=== PATIENT | female | born 1975 | race Caucasian/White ===

== ENCOUNTER 2020-03-24 14:31 | Emergency (ER) | payer SELFPAY ==
[~2020-03-24] VITALS: Ht 157.5 cm; Wt 79.8 kg
[2020-03-24 14:40] VITALS: BP 138/85
--- NOTE | 2020-03-24 14:40 | NUR ---
PT REFERED BY HER OBGYN C/O VAGINAL BLEEDING SINCE 03/04/2020 WITH 5 SAT PADS CHANGED DAILY. PT ALSO C/O LOWER CRAMPING ABDOMINAL PAIN 7/10, BAND-LIKE TENSION HEADACHE 8/10, AND DIZZINESS AT THIS TIME. DENIES NAUSEA, VOMITING, DIARRHEA, FEVER, COUGH, SORE THROAT. REPORTS HAVING IRREGULAR AND HEAVY MENSES FOR THE PAST 5 YEARS. PT DENIES ANY FEVER, CP, SOB, OR COUGH AT THIS TIME; PATIENT STATES PAIN OF 8/10 AT THIS TIME; VSS; PATIENT POSITIONED FOR COMFORT; HOB ELEVATED; BEDRAILS UP X1; BED DOWN. ER MD MADE AWARE OF PT STATUS.
[2020-03-24] MEDS ORDERED: IBUPROFEN 400 MG TAB PO ONE (15:10)
--- NOTE | 2020-03-24 15:22 | NUR ---
US IS AT BEDSIDE.
[2020-03-24 16:17] LABS: BASOPHILS % (AUTO) 0.8 % (0.0-2.0); EOSINOPHILS # (AUTO) 0.1 K/uL (0-0.4); EOSINOPHILS % (AUTO) 1.2 % (0.0-4.0); HEMATOCRIT 37.2 % (36-48); HEMOGLOBIN 12.1 g/dL (12.0-16.0); LYMPHOCYTES # (AUTO) 1.7 K/uL (2.5-16.5); LYMPHOCYTES % (AUTO) 26.4 % (20.5-51.1); MEAN CORPUSCULAR HEMOGLOBIN 30 pg (27-31); MEAN CORPUSCULAR HGB CONC 33 g/dL (33-37); MEAN CORPUSCULAR VOLUME 93.4 fL (80-94); MONOCYTES # (AUTO) 0.4 K/uL (0.8-1.0); MONOCYTES % (AUTO) 6.7 % (1.7-9.3); NEUTROPHILS # (AUTO) 4.3 K/uL (1.8-7.7); NEUTROPHILS % (AUTO) 64.9 % (42.2-75.2); PLATELET COUNT (AUTO) 235 K/uL (140-450); RED BLOOD CELL COUNT(AUTO) 3.99 MIL/uL (4.20-5.40); RED CELL DISTRIBUTION WIDTH 16.1 % (11.6-13.7); WHITE BLOOD COUNT (AUTO) 6.6 K/uL (4.8-10.8)
[2020-03-24 16:31] LABS: PROTHROMBIN TIME 9.8 secs (10.8-13.4)
[2020-03-24 16:42] LABS: ALBUMIN 3.6 g/dL (3.4-5.0); CREATININE 0.7 mg/dL (0.6-1.3); THYROID STIMULATING HORMONE 1.13 uIU/mL (0.34-3.74); TOTAL BILIRUBIN 0.1 mg/dL (0.0-1.0)
[2020-03-24 17:03] VITALS: BP 125/81
--- NOTE | 2020-03-24 17:05 | NUR ---
dr thurman at bedside reevaluating pt
--- NOTE | 2020-03-24 17:07 | NUR ---
Patient discharged with v/s stable. Written and verbal after care instructions given and explained regarding AUB. Patient alert, oriented and verbalized understanding of instructions. Ambulatory with steady gait. All questions addressed prior to discharge. ID band removed. Patient advised to follow up with PMD. Rx of naprosyn and provera given. Patient educated on indication of medication including possible reaction and side effects. Opportunity to ask questions provided and answered.Excuse from work give.
== END 2020-03-24 17:07 | disposition home or self-care (01) ==
LOC: MED 14:31
DX: N83.201 Unspecified ovarian cyst, right side (principal); D25.9 Leiomyoma of uterus, unspecified; N93.9 Abnormal uterine and vaginal bleeding, unspecified; R03.0 Elevated blood-pressure reading, without diagnosis of hypertension; Z90.49 Acquired absence of other specified parts of digestive tract
CPT/HCPCS: 36415; 76830; 80053; 81002; 81025; 84443; 85025; 85610; 85730; 99284; Q0092